=== PATIENT | female | born 1975 | race Caucasian/White ===

== ENCOUNTER 2017-08-19 05:23 | Observation (INO) | payer MEDICAID, OTHER ==
[2017-08-19] MEDS: SOD CHLORIDE 0.9% 1,000 ML IV (06:55)
[2017-08-19 06:57] LABS: ADD MAN DIFF? NO
[2017-08-19] MEDS: ONDANSETRON 4 MG INJ IV (06:59)
[2017-08-19] MEDS: morphine 4 MG/ML VIAL IV (06:59)
[2017-08-19 07:04] LABS: WHITE BLOOD COUNT 11.1 10^3/ul (4.8-10.8)
[2017-08-19 07:04] LABS: BASOPHILS % 0.4 % (0.0-2.0); EOSINOPHILS # 0.2 10^3/ul (0.0-0.5); EOSINOPHILS % 1.9 % (0.0-7.0); HEMATOCRIT 40.5 % (37.0-47.0); HEMOGLOBIN 13.3 g/dl (12.0-16.0); LYMPHOCYTES # 1.3 10^3/ul (0.8-2.9); LYMPHOCYTES % 11.6 % (15.0-51.0); MEAN CORPUSCULAR HEMOGLOBIN 31.8 pg (29.0-33.0); MEAN CORPUSCULAR HGB CONC 32.8 g/dl (32.0-37.0); MEAN CORPUSCULAR VOLUME 96.9 fl (82.0-101.0); MEAN PLATELET VOLUME 12.2 fl (7.4-10.4); MONOCYTE # 0.9 10^3/ul (0.3-0.9); MONOCYTES % 8.1 % (0.0-11.0); NEUTROPHIL # 8.6 10^3/ul (1.6-7.5); NEUTROPHILS % 77.7 % (39.0-77.0); PLATELET COUNT 135 10^3/UL (140-415); RED BLOOD COUNT 4.18 10^6/ul (4.20-5.40); RED CELL DISTRIBUTION WIDTH 13.1 % (11.5-14.5)
[2017-08-19 07:09] LABS: ADD UMIC YES; UR ASCORBIC ACID NEGATIVE (NEGATIVE); UR BACTERIA FEW /HPF (NONE SEEN); UR BILIRUBIN (Dip) NEGATIVE (NEGATIVE); UR BLOOD (Dip) 3+ mg/dL (NEGATIVE); UR CLARITY SLIGHTLY CLOUDY (CLEAR); UR COLOR YELLOW (YELLOW); UR GLUCOSE (Dip) NEGATIVE (NEGATIVE); UR KETONES (Dip) NEGATIVE (NEGATIVE); UR LEUKOCYTE ESTERASE (Dip) 2+ Leu/ul (NEGATIVE); UR NITRITE (Dip) NEGATIVE (NEGATIVE); UR RBC 38 /HPF (0-5); UR SPECIFIC GRAVITY (Dip) 1.017 (1.003-1.030); UR SQUAMOUS EPITHELIAL CELL FEW /HPF (FEW); UR TOTAL PROTEIN (Dip) NEGATIVE (NEGATIVE); UR UROBILINOGEN (Dip) 1+ mg/dL (NEGATIVE); UR WBC 5 /HPF (0-5)
[2017-08-19 07:18] LABS: POSITIVE DIFF @See below
[2017-08-19 07:24] LABS: ALANINE AMINOTRANSFERASE 210 IU/L (13-69); ALBUMIN 4.3 g/dl (3.3-4.9); ALKALINE PHOSPHATASE 102 IU/L (42-121); ANION GAP 16 (8-16); ASPARTATE AMINO TRANSFERASE 385 IU/L (15-46); BILIRUBIN,INDIRECT 0.6 mg/dl (0-1.1); BILIRUBIN,TOTAL 0.6 mg/dl (0.2-1.3); BLOOD UREA NITROGEN 12 mg/dl (7-20); CALCIUM 9.2 mg/dl (8.4-10.2); CARBON DIOXIDE 26 mmol/L (21-31); CHLORIDE 108 mmol/L (97-110); CREATININE 0.62 mg/dl (0.44-1.00); GLUCOSE 108 mg/dl (70-220); LIPASE 230 U/L (23-300); POTASSIUM 4.1 mmol/L (3.5-5.1); SODIUM 146 mmol/L (135-144); TOTAL PROTEIN 8.2 g/dl (6.1-8.1)
[2017-08-19 07:35] LABS: TROPONIN-I < 0.012 ng/ml (0.00-0.12)
[2017-08-19] MEDS: IOHEXOL 300MG/ML 150 ML BTL (08:44)
[2017-08-19] MEDS: SOD CHLORIDE 0.9% 100 ML (08:44)
[2017-08-19] MEDS: morphine 2 MG INJ IV (08:58)
[2017-08-19] MEDS: KETOROLAC 30 MG INJ IV (10:29)
[2017-08-19] MEDS ORDERED: ACETAMINOPHEN 325 MG TAB PO (12:00)
[2017-08-19] MEDS ORDERED: ONDANSETRON 4 MG INJ IV ×2 (12:00→13:00)
[2017-08-19] MEDS ORDERED: BISACODYL (EC) 5 MG TAB PO (13:00)
[2017-08-19] MEDS ORDERED: LORAZEPAM 0.5 MG TAB PO (13:00)
[2017-08-19] MEDS ORDERED: MAGNESIUM HYDROXIDE 30ML CUP PO (13:00)
[2017-08-19] MEDS ORDERED: DOCUSATE SODIUM 100 MG CAP PO (13:00)
[2017-08-19] MEDS ORDERED: NACL 0.9% 3 ML SYG IV (13:00)
[2017-08-19] MEDS ORDERED: morphine 2 MG INJ IV (13:00)
[2017-08-19] MEDS: LIDOCAINE/MYLANTA 40 ML BTL PO (15:50)
[2017-08-19] MEDS: PANTOPRAZOLE 40 MG INJ IV (15:50)
[2017-08-19] MEDS: SOD CHLORIDE 0.45% 1,000 ML IV (15:50)
[2017-08-19] MEDS: SUCRALFATE (100 MG/ML) 10ML CUP PO ×3 (16:27→22:01)
[2017-08-19] MEDS: CIPROFLOXACIN 250 MG TAB PO (18:00)
[2017-08-20] MEDS: SOD CHLORIDE 0.45% 1,000 ML IV ×3 (01:25→20:30)
[2017-08-20] MEDS: PANTOPRAZOLE 40 MG INJ IV (05:31)
[2017-08-20] MEDS: ACETAMINOPHEN 325 MG TAB PO ×2 (05:31→14:59)
[2017-08-20] MEDS: CIPROFLOXACIN 250 MG TAB PO ×2 (05:31→17:50)
[2017-08-20 07:15] LABS: ADD MAN DIFF? NO
[2017-08-20 07:24] LABS: WHITE BLOOD COUNT 4.4 10^3/ul (4.8-10.8)
[2017-08-20 07:24] LABS: BASOPHILS % 0.2 % (0.0-2.0); EOSINOPHILS # 0.2 10^3/ul (0.0-0.5); EOSINOPHILS % 4.8 % (0.0-7.0); HEMATOCRIT 36.6 % (37.0-47.0); HEMOGLOBIN 12.3 g/dl (12.0-16.0); LYMPHOCYTES # 1.7 10^3/ul (0.8-2.9); LYMPHOCYTES % 37.8 % (15.0-51.0); MEAN CORPUSCULAR HEMOGLOBIN 31.9 pg (29.0-33.0); MEAN CORPUSCULAR HGB CONC 33.6 g/dl (32.0-37.0); MEAN CORPUSCULAR VOLUME 94.8 fl (82.0-101.0); MEAN PLATELET VOLUME 11.1 fl (7.4-10.4); MONOCYTE # 0.5 10^3/ul (0.3-0.9); MONOCYTES % 11.2 % (0.0-11.0); NEUTROPHILS % 45.5 % (39.0-77.0); PLATELET COUNT 178 10^3/UL (140-415); RED BLOOD COUNT 3.86 10^6/ul (4.20-5.40); RED CELL DISTRIBUTION WIDTH 13.2 % (11.5-14.5)
[2017-08-20 07:46] LABS: ALANINE AMINOTRANSFERASE 495 IU/L (13-69); ALBUMIN 3.6 g/dl (3.3-4.9); ALBUMIN/GLOBULIN RATIO 1.09; ALKALINE PHOSPHATASE 131 IU/L (42-121); ANION GAP 14 (8-16); ASPARTATE AMINO TRANSFERASE 320 IU/L (15-46); BILIRUBIN,INDIRECT 0.8 mg/dl (0-1.1); BILIRUBIN,TOTAL 0.8 mg/dl (0.2-1.3); BLOOD UREA NITROGEN 7 mg/dl (7-20); CALCIUM 8.7 mg/dl (8.4-10.2); CARBON DIOXIDE 24 mmol/L (21-31); CHLORIDE 110 mmol/L (97-110); CREATININE 0.63 mg/dl (0.44-1.00); GLUCOSE 107 mg/dl (70-220); POTASSIUM 3.5 mmol/L (3.5-5.1); SODIUM 144 mmol/L (135-144); TOTAL PROTEIN 6.9 g/dl (6.1-8.1)
[2017-08-20] MEDS: SUCRALFATE (100 MG/ML) 10ML CUP PO ×4 (08:38→20:49)
[2017-08-20] MEDS: PANTOPRAZOLE (EC) 40 MG TAB PO (17:50)
[2017-08-21] MEDS: SOD CHLORIDE 0.45% 1,000 ML IV (04:46)
[2017-08-21] MEDS: ACETAMINOPHEN 325 MG TAB PO (05:30)
[2017-08-21] MEDS: CIPROFLOXACIN 250 MG TAB PO (05:30)
[2017-08-21] MEDS: PANTOPRAZOLE (EC) 40 MG TAB PO (05:30)
[2017-08-21 05:39] LABS: ADD MAN DIFF? NO
[2017-08-21 05:47] LABS: BASOPHILS % 0.3 % (0.0-2.0); EOSINOPHILS # 0.2 10^3/ul (0.0-0.5); EOSINOPHILS % 3.5 % (0.0-7.0); HEMATOCRIT 38.7 % (37.0-47.0); HEMOGLOBIN 12.7 g/dl (12.0-16.0); LYMPHOCYTES # 2.1 10^3/ul (0.8-2.9); LYMPHOCYTES % 35.3 % (15.0-51.0); MEAN CORPUSCULAR HEMOGLOBIN 31.4 pg (29.0-33.0); MEAN CORPUSCULAR HGB CONC 32.8 g/dl (32.0-37.0); MEAN CORPUSCULAR VOLUME 95.8 fl (82.0-101.0); MEAN PLATELET VOLUME 10.7 fl (7.4-10.4); MONOCYTE # 0.6 10^3/ul (0.3-0.9); MONOCYTES % 9.7 % (0.0-11.0); NEUTROPHIL # 3.1 10^3/ul (1.6-7.5); NEUTROPHILS % 50.9 % (39.0-77.0); PLATELET COUNT 206 10^3/UL (140-415); RED BLOOD COUNT 4.04 10^6/ul (4.20-5.40); RED CELL DISTRIBUTION WIDTH 13.1 % (11.5-14.5)
[2017-08-21 06:04] LABS: ALANINE AMINOTRANSFERASE 357 IU/L (13-69); ALBUMIN 3.9 g/dl (3.3-4.9); ALKALINE PHOSPHATASE 129 IU/L (42-121); ANION GAP 14 (8-16); ASPARTATE AMINO TRANSFERASE 128 IU/L (15-46); BILIRUBIN,INDIRECT 0.7 mg/dl (0-1.1); BILIRUBIN,TOTAL 0.7 mg/dl (0.2-1.3); BLOOD UREA NITROGEN 11 mg/dl (7-20); CARBON DIOXIDE 25 mmol/L (21-31); CHLORIDE 111 mmol/L (97-110); GLUCOSE 93 mg/dl (70-220); PHOSPHORUS 3.4 mg/dl (2.5-4.9); POTASSIUM 3.9 mmol/L (3.5-5.1); SODIUM 146 mmol/L (135-144); TOTAL PROTEIN 7.1 g/dl (6.1-8.1)
[2017-08-21] MEDS: SUCRALFATE (100 MG/ML) 10ML CUP PO ×2 (08:03→12:36)
== END 2017-08-21 14:40 | disposition home or self-care (01) ==
LOC: MS2 08-20 01:39 → FTE 05:23 → MS3 12:00
DX: R10.13 Epigastric pain (principal); K76.0 Fatty (change of) liver, not elsewhere classified; N83.201 Unspecified ovarian cyst, right side
CPT/HCPCS: 36415; 74177; 76705; 76856; 80048; 80053; 80076; 81001; 81025; 83690; 83735; 84100; 84484; 85025; 93005; 96374; 96375; 96376; 99285-25

== ENCOUNTER 2018-06-19 23:28 | Emergency (ER) | payer SELFPAY, MEDICAID ==
[2018-06-20] MEDS: KETOROLAC 60 MG INJ IM (01:14)
== END 2018-06-20 01:54 | disposition home or self-care (01) ==
LOC: FTE 23:28
DX: J06.9 Acute upper respiratory infection, unspecified (principal)
CPT/HCPCS: 81025; 96372; 99284-25